=== PATIENT | female | born 1960 | race African-American/Black ===

== ENCOUNTER 2019-09-12 03:54 | Emergency (ER) | payer OTHER ==
--- NOTE | ~2019-09-12 | EMS ---
[place] [address] EMS Patient Care Report Name: ADALID PRIEST Room #: DEP Fidencio#: [id number] Admission: 09/12/19 Attend Phys: Discharge: 09/12/19 Date of : 60 Report #: [id number] THIS REPORT FOR: //name// Report Transmitted: 09/15/2019 11:37 EMS Care Summary [place], [place]/[facility] Incident [id number] @ 09/12/2019 03:01 Incident Location [facility] [address] [place] [address] Patient ADALID PRIEST Female, 59 Years 1960 Patient Address [address] [place] [address] Patient History Other,Congestive Heart Failure (CHF),Diabetes,Hypertension (HTN),Kidney/Renal Failure,End Stage Renal Disease (ESRD),Gastrointesinal Hemorrhage,Dialysis,Respiratory Failure, Patient Allergies Penicillin allergy,Iron,Sulfa,Lisinopril, Patient Medications Insulin, Coreg, Eliquis, Valtrex, Levemir, Chief Complaint CARDIAC ARREST Disposition Transported [place] Dispatch Reason Cardiac Arrest/ Transported To [facility] Narrative UPON ARRIVAL PT SUPINE ON THE FLOOR OF BEDROOM, QUALITY CPR IS BEING DONE BY FAMILY. PT PULSELESS AND APNEIC. CPR TAKEN OVER BY MYSELF WHILE CREW GOWNS UP [facility] [address] [place] [address] EMS Patient Care Report Name: ADALID PRIEST Room #: DEP [facility]#: [id number] Admission: 09/12/19 Attend Phys: Discharge: 09/12/19 Date of : 60 Report #: [id number] AND THEN I GOWN UP. FAMILY MEMBER STATES SHE WAS WITH PT WHEN HER EYES ROLLED BACK AND SHE WENT TO THE GROUND. CPR WAS STARTED SHORTLY AFTER. FAMILY STATES PT SEEMED NORMAL AN HOUR AGO. UNKNOWN IF PT HAD ANY COMPLAINTS. CARDIAC ARREST PROTOCOL FOLLOWED THROUGHOUT CALL. PT TRANSPORTED TO [facility]. Initial Vitals @03:21P: 137,R: 9,EtCO2: 20, @03:47P: 169, @03:44P: 161,EtCO2: 15, @03:35P: 50,R: 9,EtCO2: 29, @03:31R: 10, @03:36P: 38,R: 8,EtCO2: 22, @03:47R: 14,EtCO2: 12, @03:51P: 139,R: 8,EtCO2: 44, @03:44R: 17,EtCO2: 18, @03:39P: 80,R: 6,EtCO2: 11, @03:27P: 108,R: 8,EtCO2: 40, @03:34P: 37,R: 12,EtCO2: 32, @03:31R: 9, @03:42R: 9,EtCO2: 30, @03:46P: 200,R: 11,EtCO2: 15, @03:46R: 13,EtCO2: 14, @03:26P: 131,R: 10,EtCO2: 31, @03:31R: 11,EtCO2: 32, @03:46P: 253, @03:18P: 145,EtCO2: 15, @03:18P: 199,R: 9,EtCO2: 21, @03:17P: 208,R: 9, @03:14P: 133, @03:41R: 11,EtCO2: 31, @03:16P: 189,EtCO2: 0, @03:17P: 191,R: 9, @03:21P: 142,R: 8,EtCO2: 22, @03:29P: 38,R: 12,EtCO2: 41, @03:44R: 15, @03:24P: 147,R: 9,EtCO2: 26, @03:48P: 137,R: 11,GCS: 3,EtCO2: 37, @03:09P: 0,R: 0,Pain: 0/10,GCS: 3,Glucose: 126, @03:25P: 147,EtCO2: 23, @03:30P: 43,R: 10,EtCO2: 35, @03:47R: 13,EtCO2: 11, @03:26P: 119, @03:25P: 144,R: 11,EtCO2: 24, @03:18P: 175,R: 10, @03:50P: 191,R: 10,EtCO2: 40, @03:48P: 138,EtCO2: 23, [facility] [address] [facility] [place] [address] EMS Patient Care Report Name: ADALID PRIEST Room #: DEP Fidencio#: [id number] Admission: 09/12/19 Attend Phys: Discharge: 09/12/19 Date of : 60 Report #: [id number] @03:48P: 125,R: 14,EtCO2: 32, @03:86TiSQ8: 16, @03:17P: 155,EtCO2: 14, @03:30P: 78,R: 9,EtCO2: 38, @03:41R: 10,EtCO2: 28, @03:30P: 47, Assessments @03:07MENTAL:Unresponsive,SKIN:Hot,HEENT:Head/Face: No Abnormalities,LUNG SOUNDS:General: No Abnormalities,ABDOMEN:General: No Abnormalities,PELVIS//GI:EXTREMITIES:PULSE:Radial: Absent,Carotid: Absent,Femoral: Absent,NEURO: Impression Cardiac arrest Procedures @03:17Epinephrine 1:10 - 1 Milligrams (mg) - Intraosseous (IO)Response: Unchanged@03:41Epinephrine 1:10 - 1 Milligrams (mg) - Intravenous (IV)Response: Unchanged@03:47Response: UnchangedSucceeded@03:11Saline Lock 0cc (20 ga) Site: Antecubital-LeftResponse: UnchangedFailed@03:25Epinephrine 1:10 - 1 Milligrams (mg) - Intraosseous (IO)Response: Unchanged@03:26Response: UnchangedSucceeded@03:21Response: UnchangedSucceeded@03:31Response: UnchangedSucceeded@03:07Response: UnchangedSucceeded@03:10iGEL Response: UnchangedSucceeded@03:10Oxygen FlowRate: 15 Device: Bag Valve Mask (BVM) Response: UnchangedSucceeded@03:14Normal Saline (.9% NaCl) 200cc (EZ-IO (Blue 25mm)) Site: PL-Cmhca-Ewyh ProximalResponse: UnchangedSucceeded@03:23Amiodarone - 300 Milligrams (mg) - Intraosseous (IO)Response: Unchanged@03:30Amiodarone - 150 Milligrams (mg) - Intraosseous (IO)Response: Unchanged@03:44Calcium Chloride - 10 Milliliters (ml) - Intraosseous (IO)Response: Unchanged@03:32Epinephrine 1:10 - 1 Milligrams (mg) - Intraosseous (IO)Response: Unchanged@03:46Sodium Bicarb 8.4% - 1 Milliequivalents (mEq) - Intraosseous (IO)Response: Unchanged@03:48Epinephrine 1:10 - 1 Milligrams (mg) - Intravenous (IV)Response: Unchanged Timeline 02:59,Call Received 02:59,Dispatch Notified 03:01,Dispatched 03:03,En Route 03:06,On Scene 03:07,At Patient 03:07,Response: UnchangedSucceeded, 03:09,BP: / M,PULSE: 0,RR: 0 R,SPO2: Ox,ETCO2: ,B,PAIN: 0,GCS: 3, 03:10,iGEL Response: UnchangedSucceeded, 03:10,Oxygen FlowRate: 15 Device: Bag Valve Mask (BVM) Response: [facility] [address] [place] [address] EMS Patient Care Report Name: ADALID PRIEST [id number] Admission: 09/12/19 Attend Phys: Discharge: 09/12/19 Date of : 60 Report #: [id number] UnchangedSucceeded, 03:11,Saline Lock 0cc 20 ga Site: Antecubital-Left,Response: UnchangedFailed, 03:14,Normal Saline (.9% NaCl) 200cc EZ-IO (Blue 25mm) Site: QO-Auzym-Czme Proximal,Response: UnchangedSucceeded, 03:14,BP: / M,PULSE: 133,RR: R,SPO2: Ox,ETCO2: ,BG: ,PAIN: ,GCS: , 03:16,BP: / M,PULSE: 189,RR: R,SPO2: Ox,ETCO2: 0 ,BG: ,PAIN: ,GCS: , 03:17,Epinephrine 1:10 - 1 Milligrams (mg) - Intraosseous (IO),Response: Unchanged 03:17,BP: / M,PULSE: 155,RR: R,SPO2: Ox,ETCO2: 14 ,BG: ,PAIN: ,GCS: , 03:17,BP: / M,PULSE: 208,RR: 9 R,SPO2: Ox,ETCO2: ,BG: ,PAIN: ,GCS: , 03:17,BP: / M,PULSE: 191,RR: 9 R,SPO2: Ox,ETCO2: ,BG: ,PAIN: ,GCS: , 03:18,BP: / M,PULSE: 175,RR: 10 R,SPO2: Ox,ETCO2: ,BG: ,PAIN: ,GCS: , 03:18,BP: / M,PULSE: 145,RR: R,SPO2: Ox,ETCO2: 15 ,BG: ,PAIN: ,GCS: , 03:18,BP: / M,PULSE: 199,RR: 9 R,SPO2: Ox,ETCO2: 21 ,BG: ,PAIN: ,GCS: , 03:21,BP: / M,PULSE: 137,RR: 9 R,SPO2: Ox,ETCO2: 20 ,BG: ,PAIN: ,GCS: , 03:21,Response: UnchangedSucceeded, 03:21,BP: / M,PULSE: 142,RR: 8 R,SPO2: Ox,ETCO2: 22 ,BG: ,PAIN: ,GCS: , 03:23,Amiodarone - 300 Milligrams (mg) - Intraosseous (IO),Response: Unchanged 03:24,BP: / M,PULSE: 147,RR: 9 R,SPO2: Ox,ETCO2: 26 ,BG: ,PAIN: ,GCS: , 03:25,BP: / M,PULSE: 147,RR: R,SPO2: Ox,ETCO2: 23 ,BG: ,PAIN: ,GCS: , 03:25,BP: / M,PULSE: 144,RR: 11 R,SPO2: Ox,ETCO2: 24 ,BG: ,PAIN: ,GCS: , 03:25,Epinephrine 1:10 - 1 Milligrams (mg) - Intraosseous (IO),Response: Unchanged 03:26,Response: UnchangedSucceeded, 03:26,BP: / M,PULSE: 131,RR: 10 R,SPO2: Ox,ETCO2: 31 ,BG: ,PAIN: ,GCS: , 03:26,BP: / M,PULSE: 119,RR: R,SPO2: Ox,ETCO2: ,BG: ,PAIN: ,GCS: , 03:27,BP: / M,PULSE: 108,RR: 8 R,SPO2: Ox,ETCO2: 40 ,BG: ,PAIN: ,GCS: , 03:29,BP: / M,PULSE: 38,RR: 12 R,SPO2: Ox,ETCO2: 41 ,BG: ,PAIN: ,GCS: , 03:30,Amiodarone - 150 Milligrams (mg) - Intraosseous (IO),Response: Unchanged 03:30,BP: / M,PULSE: 43,RR: 10 R,SPO2: Ox,ETCO2: 35 ,BG: ,PAIN: ,GCS: , 03:30,BP: / M,PULSE: 78,RR: 9 R,SPO2: Ox,ETCO2: 38 ,BG: ,PAIN: ,GCS: , 03:30,BP: / M,PULSE: 47,RR: R,SPO2: Ox,ETCO2: ,BG: ,PAIN: ,GCS: , 03:31,Response: UnchangedSucceeded, 03:31,BP: / M,PULSE: ,RR: 10 R,SPO2: Ox,ETCO2: ,BG: ,PAIN: ,GCS: , 03:31,BP: / M,PULSE: ,RR: 11 R,SPO2: Ox,ETCO2: 32 ,BG: ,PAIN: ,GCS: , 03:31,BP: / M,PULSE: ,RR: 9 R,SPO2: Ox,ETCO2: ,BG: ,PAIN: ,GCS: , 03:32,Epinephrine 1:10 - 1 Milligrams (mg) - Intraosseous (IO),Response: Unchanged 03:34,BP: / M,PULSE: 37,RR: 12 R,SPO2: Ox,ETCO2: 32 ,BG: ,PAIN: ,GCS: , 03:35,BP: / M,PULSE: 50,RR: 9 R,SPO2: Ox,ETCO2: 29 ,BG: ,PAIN: ,GCS: , 03:36,BP: / M,PULSE: 38,RR: 8 R,SPO2: Ox,ETCO2: 22 ,BG: ,PAIN: ,GCS: , 03:39,BP: / M,PULSE: 80,RR: 6 R,SPO2: Ox,ETCO2: 11 ,BG: ,PAIN: ,GCS: , 03:41,Depart Scene 03:41,Epinephrine 1:10 - 1 Milligrams (mg) - Intravenous (IV),Response: Unchanged 03:41,BP: / M,PULSE: ,RR: 10 R,SPO2: Ox,ETCO2: 28 ,BG: ,PAIN: ,GCS: , [address] [address] EMS Patient Care Report Name: ADALID PRIEST Room #: [facility] Fidencio#: [id number] Admission: 09/12/19 Attend Phys: Discharge: 09/12/19 Date of : 60 Report #: [id number] 03:41,BP: / M,PULSE: ,RR: 11 R,SPO2: Ox,ETCO2: 31 ,BG: ,PAIN: ,GCS: , 03:41,BP: / M,PULSE: ,RR: R,SPO2: Ox,ETCO2: 16 ,BG: ,PAIN: ,GCS: , 03:42,BP: / M,PULSE: ,RR: 9 R,SPO2: Ox,ETCO2: 30 ,BG: ,PAIN: ,GCS: , 03:44,BP: / M,PULSE: ,RR: 17 R,SPO2: Ox,ETCO2: 18 ,BG: ,PAIN: ,GCS: , 03:44,Calcium Chloride - 10 Milliliters (ml) - Intraosseous (IO),Response: Unchanged 03:44,BP: / M,PULSE: ,RR: 15 R,SPO2: Ox,ETCO2: ,BG: ,PAIN: ,GCS: , 03:44,BP: / M,PULSE: 161,RR: R,SPO2: Ox,ETCO2: 15 ,BG: ,PAIN: ,GCS: , 03:46,BP: / M,PULSE: 200,RR: 11 R,SPO2: Ox,ETCO2: 15 ,BG: ,PAIN: ,GCS: , 03:46,Sodium Bicarb 8.4% - 1 Milliequivalents (mEq) - Intraosseous (IO),Response: Unchanged 03:46,BP: / M,PULSE: 253,RR: R,SPO2: Ox,ETCO2: ,BG: ,PAIN: ,GCS: , 03:46,BP: / M,PULSE: ,RR: 13 R,SPO2: Ox,ETCO2: 14 ,BG: ,PAIN: ,GCS: , 03:47,Response: UnchangedSucceeded, 03:47,BP: / M,PULSE: ,RR: 14 R,SPO2: Ox,ETCO2: 12 ,BG: ,PAIN: ,GCS: , 03:47,BP: / M,PULSE: ,RR: 13 R,SPO2: Ox,ETCO2: 11 ,BG: ,PAIN: ,GCS: , 03:47,BP: / M,PULSE: 169,RR: R,SPO2: Ox,ETCO2: ,BG: ,PAIN: ,GCS: , 03:48,BP: / M,PULSE: 138,RR: R,SPO2: Ox,ETCO2: 23 ,BG: ,PAIN: ,GCS: , 03:48,BP: / M,PULSE: 125,RR: 14 R,SPO2: Ox,ETCO2: 32 ,BG: ,PAIN: ,GCS: , 03:48,BP: / M,PULSE: 137,RR: 11 R,SPO2: Ox,ETCO2: 37 ,BG: ,PAIN: ,GCS: 3, 03:48,Epinephrine 1:10 - 1 Milligrams (mg) - Intravenous (IV),Response: Unchanged 03:50,At Destination 03:50,BP: / M,PULSE: 191,RR: 10 R,SPO2: Ox,ETCO2: 40 ,BG: ,PAIN: ,GCS: , 03:51,BP: / M,PULSE: 139,RR: 8 R,SPO2: Ox,ETCO2: 44 ,BG: ,PAIN: ,GCS: , 04:04,Call Closed Disclaimer v1.1 Copyright 2020 [employer] This EMS Care Summary contains data elements from the applicable legal record (which may be displayed differently). It is designed to provide pertinent information for the following purposes: continuity of care, clinical quality, and state data reporting. The complete legal record is available to ED staff and administrators of the receiving hospital in [employer]'s Patient Tracker. All data is provided "as is."
[2019-09-12 04:33] LABS: HEMATOCRIT 25.3 % (37.0-47.0); HEMOGLOBIN 7.5 gm/dL (12.0-15.0); MCH 31.4 pg (26.0-34.0); MCHC 29.6 g/dL (28.0-37.0); MCV 106.1 fL (80.0-100.0); PLATELET COUNT 173 thou/uL (150-400); RBC 2.38 mil/uL (4.20-5.00); RDW 22.1 % (10.5-14.5); WBC 11.7 thou/uL (4.0-11.0)
[2019-09-12 04:50] LABS: ALBUMIN 0.9 g/dL (3.4-5.0); CREATININE 3.5 mg/dL (0.6-1.0); MAGNESIUM 2.3 mg/dL (1.8-2.4); PHOSPHORUS 8.7 mg/dL (2.5-4.9); POTASSIUM 4.1 mmol/L (3.5-5.1); TOTAL BILIRUBIN 0.3 mg/dL (<0.1-1.0); TOTAL PROTEIN 4.5 g/dL (6.4-8.2)
[2019-09-12 04:52] LABS: CALCIUM 14.2 mg/dL (8.5-10.1); TROPONIN-I 0.63 ng/mL (<0.06)
[2019-09-12 05:19] LABS: ABSOLUTE NEUTROPHILS 5.1 thou/uL (1.4-8.2); ANISOCYTOSIS 3+; MACROCYTES 1+; METAMYELOCYTES 1 %; NUCLEATED RBCS 1 /100WBC; POLYCHROMASIA 1+
[2019-09-12 07:11] VITALS: BP 0/0
--- NOTE | 2019-09-14 08:56 | EKG ---
[facility] [address] ELECTROCARDIOGRAM REPORT Name: ADALID PRIEST Room #: DEP 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
== END 2019-09-12 05:46 ==
LOC: ER 03:54
PROVIDERS: Emergency Medicine
DX: I46.9 Cardiac arrest, cause unspecified (principal); N18.6 End stage renal disease; Z03.818 Encounter for observation for suspected exposure to other biological agents ruled out; Z99.2 Dependence on renal dialysis; Z91.048 Other nonmedicinal substance allergy status; Z91.040 Latex allergy status; Z88.8 Allergy status to other drugs, medicaments and biological substances; Z88.0 Allergy status to penicillin